=== PATIENT | male | born 1940 | race Caucasian/White ===

== ENCOUNTER 2018-02-03 07:30 | Inpatient (IN) | payer MEDICARE, OTHER ==
--- NOTE | 2018-04-10 13:30 | HP ---
AMENDED REPORT NOW INCLUDES COSIGNER DESIGNATION - ESIGNED BEFORE ADJUSTMENT HISTORY AND PHYSICAL: DATE OF ADMISSION/SURGERY: 04/16/18 DATE OF OFFICE VISIT: 04/10/18 SURGEON: Jessie Melgar MD * (DICTATED BY LILIANA BLISS) PROCEDURE: Right total knee arthroplasty. CHIEF COMPLAINT: Right knee pain. HISTORY OF PRESENT ILLNESS: Mr. Vanegas is a 77-year-old gentleman with complaints of right knee pain. He has failed conservative treatment and elected to proceed with a right total knee arthroplasty. PAST MEDICAL HISTORY: Thyroid cancer, prostate cancer, depression, high cholesterol, vitamin B12 deficiency, autoimmune hepatitis, history of a GI bleed , anxiety. PAST SURGICAL HISTORY: Thyroidectomy, prostatectomy. CURRENT MEDICATIONS: 1. CellCept. 2. Prednisone 2.5 mg daily. 3. Tylenol as needed. 4. Levoxyl 150 mcg daily. ALLERGIES: To SULFA ANTIBIOTICS and AZATHIOPRINE. FAMILY HISTORY: Coronary artery disease. 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 He does not smoke or use drugs. He has occasional alcohol. REVIEW OF SYSTEMS: A complete 14-point review of systems was reviewed with the patient. It was positive for history of thyroid cancer and autoimmune hepatitis. He denies history of DVT, PE, HIV, or anesthesia problems. PHYSICAL EXAMINATION GENERAL: He is well developed, well nourished, in no acute distress. VITAL SIGNS: He stands 73 inches tall, weighs 196 pounds. Blood pressure 121/ 72 and his heart rate 80. HEENT: Normocephalic, atraumatic. NECK: Supple. No palpable lymph nodes. PULMONARY: Lungs are clear to auscultation bilaterally. CARDIO: Regular rate and rhythm. Strong S1, S2. ABDOMEN: Soft, nontender, nondistended. NEUROLOGICAL: He is alert and oriented x3. MUSCULOSKELETAL: Right lower extremity, the skin is intact. There are no open wounds or abrasions. Range of motion 15 to 120 degrees of flexion. There is a moderate joint effusion. Tenderness over the medial and lateral joint line. 5/ 5 lower extremity strength. 2+ dorsalis pedis pulse with an intact sensation. ASSESSMENT AND PLAN: Mr. Vanegas is a 77-year-old gentleman with end-stage osteoarthritis of the right knee, who has failed conservative treatment and elected to proceed with a right total knee arthroplasty, which is scheduled for 04/16/[address] Melgar discussed the risks and benefits of the surgery at today's visit and all of her questions were answered. He will follow up with Dr. Melgar 2 weeks after the surgery. LILIANA BLISS [id number]/[facility] #: [id number] RIZWANA
[2018-04-15] MEDS ORDERED: Buffered Lidocaine 0.9% SYRIN* 5 ML/SYR SYRINGE INTRADERM ONE (14:41)
[2018-04-16] MEDS ORDERED: Acetaminophen TAB* 325 MG PO ONE (06:00)
[2018-04-16] MEDS ORDERED: celeCOXIB CAP* 200 MG PO ONE (06:00)
[2018-04-16] MEDS ORDERED: Famotidine IV* 10 MG/ML 2 ML (20 mg) IV ONE (06:00)
[2018-04-16] MEDS ORDERED: Gabapentin CAP(*) 300 MG PO ONE (06:00)
--- OUTSIDE RECORDS SUMMARY | 2018-04-16 07:26 | XMS REPORT ---
:1940 External Reference #:[id number] Author Organization [facility] Address [address] [place] [address] [place] [address] Phone [phone] Care Team Providers Name Role Phone Logan Salmon MD Primary Care Physician Unavailable Payers Type Date Identification Numbers Payment Provider Subscriber Medicare Primary Policy Number: [id number] Medicare Juan Miguel Thompson Jr PayID: [id number] [address] [place] [address] Medigap Part B Policy Number: [id number] [employer] Insurance Juan Miguel Thompson Jr PayID: [id number] [address] [place] [address] Problems Date Description Provider Status Onset: 12/03/2017 Localized, primary osteoarthritis Jessie Melgar M.D. Active Family History Date Family Member(s) Problem(s) Comments General Heart Disease Social History Type Date Description Comments Lives With Occupation Retired ETOH Use Occasionally consumes alcohol Smoking Patient has never smoked Exercise Type/Frequency Exercises regularly Allergies, Adverse Reactions, Alerts Date Description Reaction Status Severity Comments 12/03/2017 Azothyoprene active 12/03/2017 Sulfa Antibiotics active Medications Medication Date Status Form Strength Qnty SIG Indications Ordering Provider Alex Active Misc 1units front Jessie 018 Anival Espinoza Cellcept Active Tablets 500mg take one Unknown 000 capsule/ta blet daily by mouth for 1 week then 1 twice daily ongoing Prednisone Active Tablets 2.5mg 1 by mouth Unknown 000 every day Acetaminophen Active Tablets 500mg 2 by mouth Unknown 000 twice a day Thyroxin Active Unknown 000 Medications Administered in Office Medication Date Status Form Strength Qnty SIG Indications Ordering Provider Depomedrol Administered Injection Jessie 40MG Maury Melgar M.D. Depomedrol Administered Injection Jessie 40MG 018 Anival Melgar Depomedrol Administered Injection Jessie 40MG Maury Melgar M.D. Vital Signs Date Vital Result Comment 04/10/2018 Height 73 inches 6'1" Weight 196.00 lb BP Systolic 121 mmHg BP Diastolic 72 mmHg Respiratory Rate 16 /min Pain Level 2 BMI (Body Mass Index) 25.9 kg/m2 03/06/2018 Height 73 inches 6'1" Weight 210.00 lb BP Systolic 126 mmHg BP Diastolic 72 mmHg Body Temperature 98.2 F Pain Level 6 BMI (Body Mass Index) 27.7 kg/m2 12/03/2017 Height 71.5 inches 5'11.50" Weight 210.00 lb Heart Rate 65 /min BP Systolic 112 mmHg BP Diastolic 73 mmHg Respiratory Rate 16 /min BMI (Body Mass Index) 28.9 kg/m2 Results Test Date Test Result H/L Range Note Basic Metabolic Panel 03/17/2018 Sodium 136 mmol/L 135-145 Potassium 4.1 mmol/L 3.5-5.0 Chloride 103 mmol/L 101-111 Co2 Carbon Dioxide 26 mmol/L 22-32 Anion Gap 7 mmol/L 2-11 Glucose 106 mg/dL High 70-100 Blood Urea Nitrogen 23 mg/dL 6-24 Creatinine 0.99 mg/dL 0.67-1.17 BUN/Creatinine Ratio 23.2 High 8-20 Calcium 8.8 mg/dL 8.6-10.3 Egfr Non- 73.5 >60 Egfr 88.9 >60 1 Inr/Protime 03/17/2018 Inr 0.98 0.77-1.02 Laboratory test finding 03/17/2018 Partial Thrombo Time 31.7 seconds 26.0 -36.3 PTT CBC Auto Diff 03/17/2018 White Blood Count 6.1 10^3/uL 3.5-10.8 Red Blood Count 4.13 10^6/uL 4.00-5.40 Hemoglobin 13.5 g/dL Low 14.0-18.0 Hematocrit 40 % Low 42-52 Mean Corpuscular Volume 97 fL High 80-94 Mean Corpuscular Hemoglobin 33 pg High 27-31 Mean Corpuscular HGB Conc 34 g/dL 31-36 Red Cell Distribution Width 13 % 10.5-15 Platelet Count 196 10^3/uL 150-450 Mean Platelet Volume 9.0 um3 7.4-10.4 Abs Neutrophils 4.6 10^3/uL 1.5-7.7 Abs Lymphocytes 0.8 10^3/uL Low 1.0-4.8 Abs Monocytes 0.6 10^3/uL 0-0.8 Abs Eosinophils 0 10^3/uL 0-0.6 Abs Basophils 0 10^3/uL 0-0.2 Abs Nucleated RBC 0 10^3/uL Granulocyte % 75.1 % 38-83 Lymphocyte % 13.2 % Low 25-47 Monocyte % 10.3 % High 0-7 Eosinophil % 0.7 % 0-6 Basophil % 0.7 % 0-2 Nucleated Red Blood Cells % 0.1 CBC No Diff 03/11/2018 White Blood Count 5.1 10^3/uL 3.5-10.8 Red Blood Count 3.82 10^6/uL Low 4.00-5.40 Hemoglobin 12.5 g/dL Low 14.0-18.0 Hematocrit 37 % Low 42-52 Mean Corpuscular Volume 96 fL High 80-94 Mean Corpuscular Hemoglobin 33 pg High 27-31 Mean Corpuscular HGB Conc 34 g/dL 31-36 Red Cell Distribution Width 13 % 10.5-15 Platelet Count 200 10^3/uL 150-450 Mean Platelet Volume 9.4 um3 7.4-10.4 Liver Function Panel 03/11/2018 Total Protein 7.5 g/dL 6.4-8.9 Albumin 4.0 g/dL 3.2-5.2 Globulin 3.5 g/dL 2-4 Albumin/Globulin Ratio 1.1 1-3 Total Bilirubin 0.40 mg/dL 0.2-1.0 Direct Bilirubin 0.10 mg/dL 0.03-0.18 Indirect Bilirubin 0.3 mg/dL 0.3-1.0 Alkaline Phosphatase 49 U/L 34-104 Alt 24 U/L 7-52 Ast 24 U/L 13-39 Laboratory test 03/11/2018 TSH (Thyroid Stim 0.13 mcIU/mL Low 0.34-5.60 finding Horm) Laboratory test 09/22/2014 PSA Diagnostic < 0.008 ng/mL 0-4.000 2 finding Basic Metabolic Panel 09/22/2014 Sodium 136 mmol/L 133-145 Potassium 4.4 mmol/L 3.5-5.0 Chloride 103 mmol/L 101-111 Co2 Carbon Dioxide 26 mmol/L 22-32 Anion Gap 7 mmol/L 2-11 Glucose 101 mg/dL High 70-100 Blood Urea Nitrogen 22 mg/dL 6-24 Creatinine 1.01 mg/dL 0.67-1.17 BUN/Creatinine Ratio 21.8 High 8-20 Calcium 8.6 mg/dL 8.6-10.3 Egfr Non- 72.4 >60 Egfr 93.1 >60 3 Liver Function Panel 09/22/2014 Total Protein 7.3 g/dL 6.4-8.9 Albumin 3.9 g/dL 3.2-5.2 Globulin 3.4 g/dL 2-4 Albumin/Globulin Ratio 1.1 1-3 Total Bilirubin 0.60 mg/dL 0.2-1.0 Direct Bilirubin 0.10 mg/dL 0.03-0.18 Indirect Bilirubin 0.5 mg/dL 0.3-1.0 Alkaline Phosphatase 45 U/L 34-104 Alt 14 U/L 7-52 Ast 21 U/L 13-39 Iron & Iron Binding Capacity 09/22/2014 Iron 128 g/dL 50-212 Unsaturated Iron Binding 218 g/dL Total Iron Binding Capacity 346 g/dL 250-450 % Iron Saturation 37 % 15-55 Culture And Sensitivity 02/17/2012 M <SEE NOTE> 4 Culture And Sensitivity 02/17/2012 M <SEE NOTE> 5 1 Because ethnic data is not always readily available, this report includes an eGFR for both -Americans and non- Americans. The National Kidney Disease Education Program (NKDEP) does not endorse the use of the MDRD equation for patients that are not between the ages of 18 and 70, are , have extremes of body size, muscle mass, or nutritional status, or are non- or non-. According to the National Kidney Foundation, irrespective of diagnosis, the stage of the disease is based on the level of kidney function: Stage Description GFR(mL/min/1.73 m(2)) 1 Kidney damage with normal or decreased GFR 90 2 Kidney damage with mild decrease in GFR 60-89 3 Moderate decrease in GFR 30-59 4 Severe decrease in GFR 15-29 5 Kidney failure <15 (or dialysis) 2 Serum levels of PSA measured using the Intradiem DXI Hybritech immunoassay should not be interpreted as absolute evidence of the presence or absence of disease. The PSA value should be used in conjunction with other pertinent clinical diagnostic procedures. A PSA value in the range of 0.1 to 0.6 ng/ml is indeterminate if being used as an indicator of recurrent or residual disease. The values obtained with different assay methods or kits cannot be used interchangeably. 3 Because ethnic data is not always readily available, this report includes an eGFR for both -Americans and non- Americans. The National Kidney Disease Education Program (NKDEP) does not endorse the use of the MDRD equation for patients that are not between the ages of 18 and 70, are , have extremes of body size, muscle mass, or nutritional status, or are non- or non-. According to the National Kidney Foundation, irrespective of diagnosis, the stage of the disease is based on the level of kidney function: Stage Description GFR(mL/min/1.73 m(2)) 1 Kidney damage with normal or decreased GFR 90 2 Kidney damage with mild decrease in GFR 60-89 3 Moderate decrease in GFR 30-59 4 Severe decrease in GFR 15-29 5 Kidney failure <15 (or dialysis) 4 RUN DATE: 02/21/12 [facility] NMI LIVE PAGE 1 RUN TIME: 1215 Specimen Inquiry RUN USER: INTERFACE Name: JUAN MIGUEL THOMPSON Status: DIS IN Re02/16/12 Age/Sex: 71/M Unit#: [id number] Location: [address] [place], [place] [address]B. : 42 SPEC #: [id number] VARUN: 02/17/12 STATUS: COMP REQ #: [id number] RECD: 02/17/[address]: Tommy FRANCOIS,Linda Pride SOURCE: [facility] ENTR: 02/17/[address] [facility] [address]: Ely FRANCOIS,Eder Delgado SPDESC: ABSCESS Viky FRANCOIS,Logan ORDERED: CULT SENS/GS, ANAEROBIC CULT COMMENTS: LEA RECTAL ABSCESS ACT WKST: B 02/21/12 #1 Procedure Result Verified Site > CULTURE SENSITIVITY Final 02/21/12- 1215 ML Organism 1 STREP INTERMEDIUS QUANTITY MANY Organism 2 NORMAL DELVIN QUANTITY FEW - ORGANISM NONVIABLE FOR FURTHER ANALYSIS > GRAM STAIN SMEAR Final 02/18/12- 816 ML POLYS MANY SMEAR: MANY NUCLEATED CELLS MANY GRAM POSITIVE COCCI MOD GRAM NEGATIVE COCCOBACILLI > ANAEROBIC CULTURE Final 02/20/12- 918 ML Organism 1 BACTEROIDES FRAGILIS Anaerobic sensitivities are not routinely performed. Positive isolates will be saved for one week. Please call the Microbiology Laboratory if susceptibility testing is needed. QUANTITY MANY BETA-LACTAMASE DISC POSITIVE ML - [facility] State Permit #[id number] [facility] [employer] [facility] [address] DEPARTMENT OF PATHOLOGY, [facility] [employer] [place], [place] [address] [facility] Permit #[id number] Aleksandr Ardon M.D. Director Vicky Couch M.D. Survey Project Manager 5 RUN DATE: 02/21/12 [facility] NMI LIVE PAGE 1 RUN TIME: 1119 Specimen Inquiry RUN USER: INTERFACE Name: JUAN MIGUEL THOMPSON Status: DIS IN Re02/16/12 Age/Sex: 71/M Unit#: [id number] Location: [address] [place] [address]. : 42 SPEC #: [id number] VARUN: 02/17/12-1099 STATUS: COMP REQ #: [id number] RECD: 02/17/12-[address]: Tommy FRANCOIS,Linda Pride SOURCE: [facility] ENTR: 02/17/12-[address]: Ely FRANCOIS,Eder Delgado SPDESC: ABSCESS Viky FRANCOIS,Logan ORDERED: CULT SENS/GS, ANAEROBIC CULT ACT WKST: B 02/21/12 #1 Procedure Result Verified Site > CULTURE SENSITIVITY Final 02/21/12- 1119 ML FINAL: NO GROWTH DAY 4 > GRAM STAIN SMEAR Final 02/17/12- 1508 ML POLYS MANY SMEAR: MANY GRAM NEGATIVE BACILLI BY DIRECT SMEAR > ANAEROBIC CULTURE Final 02/21/12- 1119 ML Organism 1 BACTEROIDES FRAGILIS Anaerobic sensitivities are not routinely performed. Positive isolates will be saved for one week. Please call the Microbiology Laboratory if susceptibility testing is needed. QUANTITY MANY BETA-LACTAMASE DISC POSITIVE ML - [facility] Permit #[id number] [address] [place] [address] DEPARTMENT OF PATHOLOGY, [address] [place] [address] [facility] Permit #[id number] Aleksandr Ardon M.D. Director Vicky Couch M.D. Survey Project Manager Procedures Date CPT Code Description Status 03/06/2018 Inject/Drain Joint/Bursa Major W/O US Completed 12/03/2017 Inject/Drain Joint/Bursa Major W/O US Completed Encounters Type Date Location Provider CPT E/M Dx Office Visit 03/06/2018 [facility] Melgar M.D. 27808 M25.561 8:00a Of [facility]AT[facility] M25.562 M25.461 M25.462 M17.0 Office Visit 12/03/2017 8:00a [facility] Melgar M.D. 73497 M25.561 [facility] M25.562 M25.461 M25.462 M17.0 Plan of Care Future Appointment(s):05/01/2018 10:15 am - Jessie Melgar M.D. at [facility]04/16/2018 10:30 am - Hugo Wiggins PA-C at [facility]04/16/2018 10:30 am - LILIANA Smith at [facility]05/07/2018 8:30 am - Iker Green MD at [facility] Jgiawlhbhcuawpyt59/13/2018 10:30 am - Jessie Melgar M.D. at [facility]04/10/2018 - Jessie Ramón, M.D.M25.561 Pain in right kneeFollow up: Follow up: 2 weeks after osdsbnuX97.461 Effusion, right kneeM17.0 Bilateral primary osteoarthritis of knee
[2018-04-16] MEDS ORDERED: Famotidine IV* 10 MG/ML 2 ML (20 mg) ONE (07:50)
[2018-04-16] MEDS ORDERED: ceFAZolin 2 GM in NS PREMIX(*) 2 GM/100 ML BAG IVPB ONE (07:51)
[2018-04-16] MEDS ORDERED: celeCOXIB CAP* 100 MG ONE (07:51)
[2018-04-16] MEDS ORDERED: Gabapentin CAP(*) 300 MG ONE (07:51)
[2018-04-16] MEDS ORDERED: Acetaminophen TAB* 325 MG ONE ×2 (07:51→14:30)
[2018-04-16] MEDS ORDERED: Lidocaine 2% PF * 5 ML VIAL ONE (08:05)
[2018-04-16] MEDS ORDERED: Ondansetron INJ* 2 MG/ML VIAL ONE (08:05)
[2018-04-16] MEDS ORDERED: ROPIVACAINE 5 MG/ML 30 ML BTL (0.5%) ONE (08:05)
[2018-04-16] MEDS ORDERED: Propofol* 10 MG/ML 20 ML BTL IV PUSH ONE ×2 (08:05→10:26)
[2018-04-16] MEDS ORDERED: Dexamethasone IV* 4 MG/ML 1 ML (4 MG) ONE (08:05)
[2018-04-16] MEDS ORDERED: KETAMINE HCL* 50 MG/ML 10 ML VIAL ONE (08:06)
[2018-04-16] MEDS ORDERED: Midazolam* 1 MG/ML 5 ML VIAL (5 MG) ONE (08:06)
[2018-04-16] MEDS ORDERED: fentaNYL* 50 MCG/ML 2 ML VIAL (100 MCG VIAL) ONE (08:06)
[2018-04-16] MEDS ORDERED: Tranexamic Acid 1,000 MG in NS 0.9% 50 ML IV ONE (09:00)
[2018-04-16] MEDS ORDERED: Bupivacaine 0.25% SDV PF* 10 ML VIAL INJ ONE ×2 (09:28→11:42)
[2018-04-16] MEDS ORDERED: Midazolam* 1 MG/ML 2 ML VIAL (2 MG) ONE (10:05)
[2018-04-16] MEDS ORDERED: fentaNYL* 50 MCG/ML 2 ML VIAL (100 MCG VIAL) IV PRN (11:25)
[2018-04-16] MEDS ORDERED: Ondansetron INJ* 2 MG/ML VIAL IV PRN ×2 (11:25→12:47)
[2018-04-16] MEDS ORDERED: HYDROmorphone INJ1* 1 MG/ML SYRINGE IV PRN (11:25)
[2018-04-16] MEDS ORDERED: Naloxone* 0.4 MG/ML 1 ML VIAL IV PRN (11:25)
[2018-04-16] MEDS ORDERED: Bupivacaine 0.5% SDV PF* 30ML VIAL ONE (12:00)
[2018-04-16] MEDS ORDERED: Ondansetron TAB* 4 MG PO PRN (12:47)
[2018-04-16] MEDS ORDERED: Bisacodyl SUPP* 10 MG SUPP PR PRN (12:47)
[2018-04-16] MEDS ORDERED: Magnesium Hydroxide LIQ* 30 ML UDC PO PRN (12:47)
[2018-04-16] MEDS ORDERED: Morphine INJ* 2 MG/ML 1 ML SYRINGE (TWO MG - NEW SYRINGE VERSION) IV PRN (12:47)
[2018-04-16] MEDS ORDERED: oxyCODONE/Acetamin 5/325 MG* TAB PO PRN (12:47)
[2018-04-16] MEDS ORDERED: diPHENhydraMINE IV* 50 MG/ML 1 ml VIAL (BENADRYL) IV PRN (12:47)
[2018-04-16] MEDS ORDERED: traMADol TAB* 50 MG PO PRN (12:47)
[2018-04-16] MEDS ORDERED: Cyclobenzaprine TAB* 10 MG PO PRN (12:47)
[2018-04-16] MEDS ORDERED: Polyethylene Glycol 3350* 17 GM PACKET PO PRN (12:47)
[2018-04-16] MEDS ORDERED: Acetaminophen TAB* 325 MG PO SCH (13:00)
--- NOTE | 2018-04-16 14:14 | RAD ---
INDICATION: Right knee replacement surgery. COMPARISON: Comparison is made with a prior study from December 03, 2017. TECHNIQUE: 2 views of the right knee were obtained. FINDINGS: The patient is status post total right knee replacement surgery. The bones and prostheses are in normal alignment. There is no evidence for loosening. There is a surgical drain which projects anterior to the femur. IMPRESSION: STATUS POST TOTAL RIGHT KNEE REPLACEMENT SURGERY.
[2018-04-16] MEDS: Acetaminophen TAB* 325 MG PO SCH (15:43)
--- NOTE | 2018-04-16 15:43 | PN ---
Progress Note - Progress Note Date of Service: 04/16/18 SOAP: Subjective: [Pt doing well. States that he was having some chest pain. EKG was done in pacu , normal. Nursing helped guide him with coughing and deep breathing, chest pain resolved. States he is doing well now, pain is minimal. ] Objective: [A&O x3. NAD. +df/pf. NVI 2+ PT pulse] Assessment: [POD 0 RTKA] Plan: [-PT/OT - Pain medication availibe when needed - will continue with deep breathing and incentive spirometry ]
[2018-04-16] MEDS ORDERED: Warfarin TAB(*) 6 MG PO ONE (17:00)
[2018-04-16] MEDS: ceFAZolin 1 GM in Dextrose (*) 1 GM/50 ML BAG IVPB SCH (18:26)
[2018-04-16] MEDS: Magnesium Hydroxide LIQ* 30 ML UDC PO SCH (21:05)
[2018-04-16] MEDS: clonazePAM TAB(*) 1 MG PO PRN (21:05)
[2018-04-16] MEDS: Docusate CAP* 100 MG PO SCH (21:05)
[2018-04-16] MEDS: oxyCODONE TAB* 5 MG TAB PO PRN (21:06)
[2018-04-17] MEDS: Acetaminophen TAB* 325 MG PO SCH ×4 (00:03→23:39)
[2018-04-17] MEDS: ceFAZolin 1 GM in Dextrose (*) 1 GM/50 ML BAG IVPB SCH ×2 (01:31→08:43)
[2018-04-17 05:27] LABS: Hematocrit 30 % (42-52); Hemoglobin 10.3 g/dl (14.0-18.0); Mean Platelet Volume 8.9 um3 (7.4-10.4); Platelet Count 139 10^3/ul (150-450)
[2018-04-17 05:32] LABS: INR 1.14 (0.77-1.02)
[2018-04-17] MEDS: Levothyroxine TAB* 150 MCG TAB PO SCH (05:46)
[2018-04-17] MEDS: oxyCODONE TAB* 5 MG TAB PO PRN ×3 (05:46→22:22)
[2018-04-17 05:47] LABS: EGFR Non-African American 95.4 (>60)
[2018-04-17] MEDS: Magnesium Hydroxide LIQ* 30 ML UDC PO SCH ×2 (08:44→20:40)
[2018-04-17] MEDS: Docusate CAP* 100 MG PO SCH ×2 (08:45→20:39)
[2018-04-17] MEDS: predniSONE TAB* 5 MG PO SCH (08:45)
--- NOTE | 2018-04-17 08:50 | OP ---
DATE OF OPERATION: 04/16/18 - ROOM #[id number] DATE OF : 42 SURGEON: Jessie Melgar MD EDGE STRIPPER: LILIANA Eid. Ms. Nolasco did help throughout the procedure with preparation of the leg, wound retraction, manipulation of the knee, and wound closure. ANESTHESIOLOGIST: Dr. Bolanos. ANESTHESIA: General. PRE-OP DIAGNOSIS: Severe end-stage degenerative osteoarthritis of the right knee joint. POST-OP DIAGNOSIS: Severe end-stage degenerative osteoarthritis of the right knee joint. OPERATIVE PROCEDURE: Right total knee arthroplasty. TOURNIQUET TIME: 53 minutes. COMPLICATIONS: None. SPECIMENS: Bone and cartilage from the right knee joint sent to pathology. ESTIMATED BLOOD LOSS: 350 cc. HARDWARE USED: This is Graf and Nephew cemented total knee arthroplasty hardware. Two packages of Simplex bone cement. For the femur, a right size 8 posterior stabilized Legion femoral component. For the tibia, a right size 8 Noris II tibial baseplate. For the insert, a 9-mm posterior stabilized articular insert size 7/8. For the patella, 35-mm 3-peg all poly patella. BRIEF HISTORY/INDICATIONS: Mr. Vanegas is a 77-year-old gentleman with years of increasingly severe right knee pain. His radiographs showed [id number] arthritis. He failed conservative treatment with antiinflammatories, pain medications, physical therapy, and intraarticular injections. Due to continued pain and decreased quality of life, he elected to undergo right total knee arthroplasty. Informed consent was obtained from the patient. He understood the risks of surgery included but were not limited to, bleeding, infection, damage to nearby structures, continued pain, need for further surgery, intraoperative fracture, nerve palsy, hardware failure or loosening, knee stiffness, loss of motion, stroke, heart attack, blood clot, and . He wished to proceed. INTRAOPERATIVE FINDINGS: Intraoperatively, the patient was noted to have severe end-stage arthritis with complete loss of cartilage in the medial and patellofemoral compartments. DESCRIPTION OF PROCEDURE: Mr. Vanegas was identified in the preanesthesia unit. His right lower extremity was marked as the correct operative side. Informed consent was signed and placed in the chart. The patient was taken to the operating room and placed under general anesthesia. A Dewey catheter was placed. Tourniquet was placed on the right thigh. Right lower extremity was prepped and draped in the usual sterile fashion. Preop time-out was made to correctly identify the patient's side and site. Appropriate perioperative antibiotics were given within 1 hour of incision. Tourniquet was inflated and total tourniquet time for this procedure was 53 minutes. A midline incision was made with a #10 blade and carried down to the extensor mechanism. A new #10 blade was used to make a standard medial parapatellar arthrotomy. Patella was subluxed laterally. Electrocautery was used to subperiosteally elevate soft tissue off the superomedial tibia to the mid sagittal plane. The knee was flexed up. The anterior horn of the lateral meniscus and ACL were sharply released. A drill was used to enter the distal femur. Intramedullary distal femoral cutting guide was pinned on the distal femur. Oscillating saw was used to make the distal femoral cut. External rotation guide was pinned on the distal femur. The distal femur was sized to a size 8. Size 8 multi-cutting jig was pinned on the distal femur. Oscillating saw was used to make the appropriate 4 chamfer cuts. Next, the PCL was completely released. The tibia was subluxed anteriorly, and the extramedullary tibial cutting guide was pinned on the proximal tibia. Oscillating saw was used to make the proximal tibial cut perpendicular to the mechanical axis of the tibia. The bone was carefully removed. The knee was brought out into full extension and the spacer block had excellent fit. The medial and lateral ligaments were well balanced. Flexion and extension gaps were well balanced. The tibial tray and drop luisa was placed, and once again confirmed a satisfactory tibial cut. Lamina electrolysist was placed both medially and laterally. Any remaining meniscus was carefully removed using electrocautery. Curved osteotome was used to remove any posterior osteophytes. A size 8 right femoral trial was impacted onto the distal femur and had excellent fit. The box for the posterior stabilized implant was prepared using a reamer and box cut osteotome. Size 8 tibial tray trial with a 9 mm insert trial was placed. The knee was taken through a range of motion. The knee had full extension to 130 degrees of flexion. There was satisfactory patellofemoral tracking. The patella was everted. 9 mm of patellar bone and cartilage were carefully removed using an oscillating saw. Patella was sized to a size 35. Three peg holes were drilled through the size 35 guide. The trial 35 patella was placed, and the knee was taken through a range of motion. There was satisfactory patellofemoral tracking. All trials were carefully removed. The tibia was subluxed anteriorly and sized to a size 8. Proximal tibia was prepared using a size 8 keel punch. All bony cut surfaces were copiously irrigated with sterile saline and dried. Final implants were cemented into place starting with the tibia, followed by the femur , and lastly the patella. A 9 mm insert trial was placed, and the knee was brought out into full extension. Tourniquet was turned down at 53 minutes. The knee was copiously irrigated with sterile saline. Electrocautery was used to obtain meticulous hemostasis. Once the cement had fully cured, the insert trial was removed. Any excess cement was removed from around the capsule and hardware. Final insert chosen was a size 7/8 posterior stabilized articular insert 9 mm. This was locked into position on the tibial tray. The stability of the insert was checked and rechecked, and noted to be stable. The extensor mechanism was closed using interrupted #1 Vicryl over a medium Hemovac drain. The rest of the incision was closed in a layered fashion using 0 and 2-0 Vicryl. Skin was closed using running 3-0 nylon suture. Sterile Xeroform, 4x4' s, and Webril were used to cover the incision. Russell wrap and cold pack were placed over this. The patient's anesthesia was reversed without difficulty. He was taken to the PACU in stable condition. Intended weightbearing will be weightbearing as tolerated. Intended DVT prophylaxis will be Coumadin with a Lovenox bridge. [id number]/[facility] #: [id number] RIZWANA
[2018-04-17] MEDS: Enoxaparin(*) 30 MG/0.3 ML SYR SUBCUT SCH (12:45)
--- NOTE | 2018-04-17 12:54 | PN ---
Progress Note - Progress Note Date of Service: 04/17/18 SOAP: Subjective: [Pt was seen this morning sitting up in bed. Pt states that he is doing quite well. Feels pain is manageable. Denies any chest pain, SOB, nausea, vomiting. Pt states that he feels he would like to go home tomorrow. ] Objective: [General: A&Ox3. NAD MSK, RLE: Dressing is c/d/i without surrounding erythema. Pt is able to df/pf, sensation intact distally. 2+ DP and PT pulse. ] Vital Signs Temp 97.8 F 04/17/18 08:14 Pulse 63 04/17/18 08:14 Resp 18 04/17/18 11:30 BP 136/77 04/17/18 08:14 Pulse Ox 100 04/17/18 08:14 Intake & Output 04/16/18 04/17/18 04/17/18 18:59 06:59 18:59 Intake Total 1840 1535 2086 Output Total 550 3325 400 Balance 1290 -1790 1686 Weight 200 lb Intake: IV Fluids 0142 920 6127 LR 980 2036 lr 1600 IVPB 55 50 ABX - CEFAZOLIN 55 50 Oral 240 500 Output: Urine 400 Dewey 550 3325 Other: # Bowel Movements 0 Assessment: [POD 1 RTKA ] Plan: [- finish post op abx - PT/OT - Continue current pain medication - Likely DC home tomorrow - INR 1.14 - Lovenox, coumadin 6 mg tonight ]
[2018-04-17] MEDS ORDERED: Warfarin TAB(*) 6 MG PO SCH (17:00)
[2018-04-17] MEDS: oxyCODONE/Acetamin 5/325 MG* TAB PO PRN (20:40)
[2018-04-17] MEDS: clonazePAM TAB(*) 1 MG PO PRN (22:35)
[2018-04-18] MEDS: oxyCODONE/Acetamin 5/325 MG* TAB PO PRN ×5 (03:06→20:31)
[2018-04-18 05:59] LABS: Hematocrit 29 % (42-52); Hemoglobin 10.1 g/dl (14.0-18.0); Mean Platelet Volume 9.1 um3 (7.4-10.4); Platelet Count 133 10^3/ul (150-450)
[2018-04-18 06:04] LABS: INR 1.23 (0.77-1.02)
[2018-04-18] MEDS: Levothyroxine TAB* 150 MCG TAB PO SCH (06:31)
[2018-04-18] MEDS: Magnesium Hydroxide LIQ* 30 ML UDC PO SCH ×2 (08:07→20:32)
[2018-04-18] MEDS: predniSONE TAB* 5 MG PO SCH (08:12)
[2018-04-18] MEDS: Docusate CAP* 100 MG PO SCH ×2 (08:12→20:30)
[2018-04-18] MEDS: Acetaminophen TAB* 325 MG PO SCH ×2 (08:13→16:37)
--- NOTE | 2018-04-18 09:07 | PN ---
Progress Note - Progress Note Date of Service: 04/18/18 SOAP: Subjective: [Pt was seen this morning sitting up in chair. States that he had increased pain last night. Denies any chest pain, SOB, Nausea, vomiting. Would like to discuss discharge options and medication options with present. ] Objective: [General: A&Ox3, NAD MSK: RLE: Dressing was changed today. Incision is c/d/i without any purulence or drainage. 4x4s and LINO were wrapped around the wound. No TTP along the calf. +df/pf. 2+ DP pulse] Vital Signs Temp 99.2 F 04/18/18 03:09 Pulse 77 04/18/18 03:09 Resp 16 04/18/18 08:12 BP 147/80 04/18/18 03:09 Pulse Ox 98 04/18/18 03:09 Intake & Output 04/17/18 04/18/18 04/18/18 18:59 06:59 18:59 Intake Total 3186 1200 450 Output Total 400 500 Balance 2786 700 450 Intake: IV Fluids 2035 LR 2035 IVPB 50 ABX - CEFAZOLIN 50 Oral 1100 1200 450 Output: Urine 400 500 Assessment: [POD 2 RTKA] Plan: [Tums 500mg tid to help replenish Ca, Ca of 7.9 today -Continue with pain medication - Continue with PT/OT today - Dressing was changed today - Possible DC home today - INR 1.23 today - lovenox today, 8mg of warfarin today ]
[2018-04-18] MEDS ORDERED: Calcium Carbonate CHEW TAB* 500 MG (TUMS) ONE (11:59)
[2018-04-18] MEDS: Enoxaparin(*) 30 MG/0.3 ML SYR SUBCUT SCH (12:01)
[2018-04-18] MEDS: Calcium Carbonate CHEW TAB* 500 MG (TUMS) PO SCH ×2 (12:01→20:30)
[2018-04-18] MEDS ORDERED: Warfarin TAB(*) 4 MG PO ONE (17:00)
[2018-04-19] MEDS: oxyCODONE/Acetamin 5/325 MG* TAB PO PRN ×3 (00:31→08:27)
[2018-04-19] MEDS: Acetaminophen TAB* 325 MG PO SCH ×2 (00:40→07:34)
[2018-04-19] MEDS: Levothyroxine TAB* 150 MCG TAB PO SCH (05:29)
[2018-04-19 05:40] LABS: Hematocrit 28 % (42-52); Hemoglobin 9.5 g/dl (14.0-18.0); Mean Platelet Volume 8.5 um3 (7.4-10.4); Platelet Count 135 10^3/ul (150-450)
[2018-04-19 05:48] LABS: INR 1.43 (0.77-1.02)
[2018-04-19] MEDS: Calcium Carbonate CHEW TAB* 500 MG (TUMS) PO SCH (08:27)
[2018-04-19] MEDS: Docusate CAP* 100 MG PO SCH (08:28)
[2018-04-19] MEDS: predniSONE TAB* 5 MG PO SCH (08:28)
--- NOTE | 2018-04-19 09:15 | PN ---
Progress Note - Progress Note Date of Service: 04/19/18 SOAP: Subjective: [Pt was seen this morning sitting up in chair. States that spending the night helped put his mind at ease. Denies any chest pain, SOB, Nausea, vomiting. Feels he is ready to go home today. ] Objective: [General: A&Ox3, NAD MSK: RLE: Dressing is c/d/i without any surrounding erythema. 4x4s and LINO were wrapped around the wound. No TTP along the calf. +df/pf. 2+ DP pulse] Vital Signs Temp 99.3 F 04/19/18 04:24 Pulse 78 04/19/18 04:24 Resp 18 04/19/18 08:27 BP 122/75 04/19/18 04:24 Pulse Ox 96 04/19/18 04:24 Intake & Output 04/18/18 04/19/18 04/19/18 18:59 06:59 18:59 Intake Total 770 1220 Output Total 525 800 Balance 245 420 Intake: Oral 770 1220 Output: Urine 525 800 Other: Estimated Void Large Small Date of Last Bowel 04/19/18 Movement # Bowel Movements 1 Estimated Stool Amount Large # Voids 1 1 Assessment: [POD 3 RTKA] Plan: [ -Continue with pain medication - Continue with PT/OT today - DC home today - INR 1.43 today - lovenox today, 10mg of warfarin today, recheck tomorrow
[2018-04-19] MEDS: Magnesium Hydroxide LIQ* 30 ML UDC PO SCH (09:17)
[2018-04-19 09:49] VITALS: BP 141/71
--- NOTE | 2018-04-21 04:51 | DS ---
DISCHARGE SUMMARY: DATE OF ADMISSION: 04/16/18 DATE OF DISCHARGE: 04/19/18 PROVIDER: Dr. Jessie Melgar.* (DICTATED BY LILIANA FLORES) CONSULTATIONS: PT and OT. HISTORY OF PRESENT ILLNESS: Mr. Vanegas is a 77-year-old gentleman with complaints of right knee pain. He has failed conservative management and elected to proceed with a right total knee arthroplasty which was performed on 04/16/18. HOSPITAL COURSE: Mr. Vanegas was admitted to [facility] on 04/16/18 and underwent a right total knee arthroplasty with no complications. He recovered briefly in the postanesthesia care unit and was then transferred to the short-stay surgical unit. On postop day #1, the H and H was 10.3 and 30, INR was 1.14 after 6 mg of Coumadin the night before. Calcium was 7.9. Right lower extremity was neurovascularly intact. The patient demonstrated dorsiflexion, plantarflexion, and good strength. Pain was well-controlled with Percocet 5/325. On postop day #2, the H and H was 10.1 and 29, INR was 1.23 after 6 mg of Coumadin the night before. Tums 500 mg t.i.d. was started for calcium. Pain was well-controlled with Percocet 5/325 again. Also on postop day #2, urinary catheter was discontinued, the patient was able to void without difficulty. The patient was up with physical therapy. On postop day #3 H and H was 9.5 and 28, INR was 1.43 after 8 mg of Coumadin the night before. The patient's pain was found to be stable for discharge. Vital Signs remained stable throughout the hospital course. DISCHARGE CONDITION: Good. DISCHARGE MEDICATIONS: 1. Percocet 5/325. 2. Colace 100 mg. 3. Warfarin 2 mg. Home Medications: 1. CellCept. 2. Prednisone 2.5 mg daily. 3. Tylenol as needed. 4. Levothyroxine 150 mcg daily. DISCHARGE INSTRUCTIONS: 1. Weightbearing as tolerated. 2. Wound care: Okay to shower on postop day #3. No bathing, swimming, or submerging the wound. Use gentle soap and pat dry. Cover with gauze, Russell wrap , or tape. Call orthopedic office for increase drainage, redness, increased pain or fever. Go to the ER with shortness of breath or chest pain. 3. Diet. Regular diet. Increase fluids and fibers to prevent constipation. Continue to use stool softeners. Call the office if no bowel motion within 48 hours. 4. Continue physical therapy and occupational therapy exercises as shown. 5. Visiting home nurses to do wound checks. 6. Visiting home nurses to do draw blood work for INR on Mondays and . 7. Coumadin dosing. Please note that you have been given 2 mg tablets. You will be provided with dose instructions on Mondays and . If you do not receive dosing instructions on dosing, please call our office right away. Please siva dosing instructions on your calenders as they are provided to you. Dosing: Friday 10 mg, Friday recheck. 8. Pain control with Percocet 5/325 mg 1 to 2 tabs by mouth every 4 to 6 hours as needed for pain. 9. Antibiotics required prior to any dental work. 10. Followup with Dr. Melgar within 10 to 14 days. Call of an appointment. Please call our office with any questions or concerns at [phone]. LILIANA FLORES [id number]/SANDRA #: [id number]
== END 2018-04-19 10:35 | disposition home health service (06) | DRG 470 ==
LOC: AA 04-16 07:20 → SSU 04-16 14:53
PROVIDERS: ADMIT Orthopaedic Surgery Adult Reconstructive Orthopaedic Surgery; ATTEND Orthopaedic Surgery Adult Reconstructive Orthopaedic Surgery
PROC: 0SRC0J9 Replacement of Right Knee Joint with Synthetic Substitute, Cemented, Open Approach (ICD-10-PCS; principal; 2018-04-16 10:00)
DX: M17.0 Bilateral primary osteoarthritis of knee (principal); M25.461 Effusion, right knee; F32.9 Major depressive disorder, single episode, unspecified; E89.0 Postprocedural hypothyroidism; M25.761 Osteophyte, right knee; M19.042 Primary osteoarthritis, left hand; E78.00 Pure hypercholesterolemia, unspecified; K57.30 Diverticulosis of large intestine without perforation or abscess without bleeding; K75.4 Autoimmune hepatitis; F41.0 Panic disorder [episodic paroxysmal anxiety]; R07.9 Chest pain, unspecified; G47.33 Obstructive sleep apnea (adult) (pediatric); M19.041 Primary osteoarthritis, right hand; Z86.010 Personal history of colon polyps; Z79.01 Long term (current) use of anticoagulants; Z79.52 Long term (current) use of systemic steroids; Z85.46 Personal history of malignant neoplasm of prostate; Z90.79 Acquired absence of other genital organ(s); Z88.1 Allergy status to other antibiotic agents; Z88.2 Allergy status to sulfonamides; Z82.49 Family history of ischemic heart disease and other diseases of the circulatory system; Z85.850 Personal history of malignant neoplasm of thyroid; Z72.89 Other problems related to lifestyle; Z88.8 Allergy status to other drugs, medicaments and biological substances; Z81.8 Family history of other mental and behavioral disorders; Z87.891 Personal history of nicotine dependence
CPT/HCPCS: 36415; 80048; 85014; 85018; 85049; 85610; 90686; 93005; A9270-GY; C1776; G8978-GP-CI; G8978-GP-CJ; G8978-GP-CL; G8979-GP-CI; G8987-GO-CJ; G8988-GO-CI; G8989-GO-CJ; J0690; J1100; J1650; J2250; J2405; J2704; J2795; J3010; J3490; J7512